=== PATIENT | male | born 2000 | race Caucasian/White ===

== ENCOUNTER 2022-01-30 17:30 | Emergency (ER) | payer BC ==
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
[2022-01-30] MEDS ORDERED: Ringers Lactate 1,000 ML IV ONE (17:54)
[2022-01-30 17:58] LABS: Absolute Lymphocytes (CBC) 1.9 K/uL (0.7-4.9); Hematocrit 42.1 % (39.6-49.0); Lymphocytes % 29.2 % (15.3-44.8); MCV 90.9 fL (80-100); MPV 6.7 fL (7.6-11.3); RBC Red Blood Cell Count 4.63 M/uL (4.33-5.43)
--- NOTE | 2022-01-30 18:10 | RAD REPORT ---
EXAM DESCRIPTION: CT - Head Brain Wo Cont - 01/30/2022 5:58 pm CLINICAL HISTORY: Headache COMPARISON: None. TECHNIQUE: Computed axial tomography of the head was obtained. IV contrast was not requested. All CT scans are performed using dose optimization technique as appropriate and may include automated exposure control or mA/KV adjustment according to patient size. FINDINGS: An intracranial bleed is not seen . The ventricles are normal in caliber. No significant hypodense areas within the brain visualized No extra-axial fluid collection is noted. Fluid within the sinuses/ mastoids is not seen. IMPRESSION: No acute intracranial abnormality is seen. If patient's symptoms persist MRI of the bra in would be recommended.
[2022-01-30 18:33] LABS: Potassium 3.8 mmol/L (3.5-5.1)
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
--- NOTE | 2022-01-31 08:28 | EKG ---
Test Date: 2022-01-30 Test Time: 18:09:37 [employer]: MARY MEASUREMENT RESULTS: Intervals: Rate: 66 MA: 140 QRSD: 90 QT: 352 QTc: 369 Hope: P: 47 MA: 140 QRS: 76 T: 10 INTERPRETIVE STATEMENTS: Sinus rhythm with marked sinus arrhythmia ST elevation, consider early repolarization, pericarditis, or injury Abnormal ECG No previous ECG available for comparison Electronically Signed On 01-31-22 08:26:37 CDT by Gilbert Ochoa
[2022-02-01 13:10] VITALS: TEMP 98.1
[2022-02-01 13:14] VITALS: BP 120/77; O2SAT 99
== END 2022-01-30 21:17 | disposition home or self-care (01) ==
LOC: ER 17:30
DX: R55 Syncope and collapse (principal); R51.9 Headache, unspecified
CPT/HCPCS: 93005; 85025; 80048; 36415; 82550; 85379; 84484; 70450; 99284; J7120